=== PATIENT | male | born 1940 | race Caucasian/White ===

== ENCOUNTER 2022-10-30 21:00 | Inpatient (IN) | payer MEDICARE, MEDICAID, SELFPAY ==
[2022-10-30 21:01] VITALS: BP 145/75; PULSE 91; RESP 18; TEMP 36.6; O2SAT 98; BMI 27.9
--- NOTE | 2022-10-30 21:27 | CT_ITS ---
We are attempting to reach an attending provider to discuss findings. An addendum with communication details will be sent when the communication is complete. STUDY: CT BRAIN WITHOUT CONTRAST REASON FOR EXAM: Male, 82 years old. Trauma RADIATION DOSAGE (If Supplied By Facility): CTDIvol = ( 44.99 ) mGy, DLP = ( 812.98 ) mGycm TECHNIQUE: Transaxial CT imaging of the brain was performed without administration of intravenous contrast material. Individualized dose optimization techniques were used for this CT. COMPARISON: No relevant priors. FINDINGS: Normal soft tissue structures. Normal calvarium. There is mild cerebral atrophy with widening of the extra-axial spaces and ventricular dilatation. There are areas of decreased attenuation within the white matter tracts of the supratentorial brain, consistent with microvascular disease changes. Normal basal ganglia and thalami. Normal brainstem. There is mild cerebellar atrophy. There is a visualized well-circumscribed hyperdense mass with possible midline punctate calcification in the midline bordering the falx measuring 1.2 x 1.7 x 0.9 cm. Given its location and appearance this likely represents a mass related than hemorrhage. This may represent a small meningioma. There are no findings of an acute ischemic infarction. Normal visualized paranasal sinuses. CT/Brain/Head without Contrast IMPRESSION: Findings are suggestive of a incidental extra-axial mass bordering the anterior midline falx measuring 1.2 x 1.7 x 0.96 cm. As likely represents a meningioma rather than hemorrhage however recommend consideration for follow-up CT scan with contrast and/or preferred for soft tissue MRI, if the patient can tolerate the procedure. There is no visualized mass effect. There is no visualized edema. Electronically Signed: Deisy Yu MD at 22:21 EST ,
--- NOTE | 2022-10-30 21:27 | CT_ITS ---
STUDY: CT CERVICAL SPINE WITHOUT CONTRAST REASON FOR EXAM: Male, 82 years old. Trauma RADIATION DOSAGE (If Supplied By Facility): CTDIvol = ( 23.26 ) mGy, DLP = ( 515.51 ) mGycm TECHNIQUE: High resolution transaxial imaging was performed without contrast material. Sagittal and coronal images were reconstructed. Individualized dose optimization techniques were used for this CT. COMPARISON: None FINDINGS: Normal craniovertebral junction. There are degenerative changes of the anterior atlantoaxial articulation. Normal odontoid process. Normal cervical lordosis. Normal vertebral bodies and posterior osseous elements. C2-3: There is disc space narrowing facet arthropathy with mild neural foramina narrowing no significant central stenosis. C3-4: There is disc space narrowing minimal spondylosis, facet arthropathy with mild neural foramina narrowing no significant central stenosis. C4-5: There is disc space narrowing spondylosis facet arthropathy moderate neural foramina narrowing, minimal central stenosis. C5-6: There is slight anterolisthesis. There is severe disc space narrowing. There is minimal neural foramina narrowing, no significant central stenosis. C6-7: There is disc space narrowing spondylosis and mild neural foramina narrowing no significant central stenosis. C7-T1: There is disc space narrowing no significant neural foramina narrowing or central stenosis. There is partial calcification of the right carotid bulb. CT/Spine Cervical without Contras IMPRESSION: Degenerative change of the cervical spine without visualized acute fracture. Electronically Signed: Deisy Yu MD at 22:24 EST Reading Location ID and State: [facility] / ID Tel , Service support ,
--- NOTE | 2022-10-30 21:31 | EDS_ITS ---
HPI <Dr. Daniel Oseguera MD - Last Filed: 11/02/22 15:05> HPI - Fall History of Present Illness Chief Complaint: Fall Informant: patient Narrative Narrative: Patient presents for falls at home. Patient states that he has a long history of falls. 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 He states he has always had clumsy feet. He states on Saturday he was putting his jeans on. When he got his left foot starting to go into the jeans he got stuck. His right leg was already there. This prevented him from pulling his feet apart and he leaned forward and fell. He did hit his head but never lost consciousness. Nothing else got hurt. Tonight he was on the toilet. He was trying to maneuver and he got his toe caught on the rug that wraps around the base of the toilet. He states either his toe caught or possibly the rug even slipped causing him to fall forward. He was in a small space and had trouble getting up. Again he hit his head but does not think he got knocked out. He states he does have a little bit of a headache. He has a little soreness of his left knee. But nothing else really hurts. He has no numbness tingling weakness. He is on glimepiride metformin and insulin but no anticoagulation. He has not been ill recently. He does live at home with his . He states his called EMS. [facility] <Dr. Daniel Oseguera MD - Last Filed: 11/02/22 15:05> [facility] Medical History (Updated 11/02/22 @ 15:[address] Daniel Oseguera MD) Diabetes type 2, controlled Frequent falls Hypertension Sleep apnea Home Medications glimepiride 4 mg tablet 4 mg PO BID Check with primary doctor 10/30/22 [History Last Taken Unknown] metformin 1,000 mg tablet 1,000 mg PO BID Check with primary doctor 10/30/22 [History Last Taken Unknown] multivitamin 1 tab PO DAILY Check with primary doctor 10/30/22 [History Last Taken Unknown] insulin detemir U-100 100 unit/mL (3 mL) subcutaneous pen (Levemir FlexTouch U- 100 Insulin) 25 unit subcut DAILY Check with primary doctor 10/31/22 [History Last Taken Unknown] Allergy/AdvReac Type Severity Reaction Status Date / Time No Known Allergies Allergy Verified 10/30/22 21:10 Family History (Updated 10/31/22 @ 11:[address] Sky Callahan MD) Mother No problems noted. Father No problems noted. Social History Smoking Status: Former smoker ROS <Dr. Daniel Oseguera MD - Last Filed: 11/02/22 15:05> ROS ED Constitutional Constitutional ED: Denies chills or fever(s) Eyes Eyes: Denies change in vision ENT ENT ED: Denies rhinorrhea or sore throat Cardiovascular Cardiovascular: Denies chest pain, palpitations or racing heartbeat Respiratory/Chest Respiratory/Chest: Denies cough or dyspnea Gastrointestinal Gastrointestinal: Denies abdominal pain, diarrhea, nausea or vomiting Genitourinary Genitourinary ED: Denies dysuria Musculoskeletal Musculoskeletal: Reports arthralgias; Denies back pain or neck pain Integumentary Reports Abrasions and other Details: Slight abrasion/contusion to anterior left knee. Neurologic Neurologic: Reports headache(s); Denies paresthesias or weakness Endocrine Endocrinology: Reports other Details: Patient states he has been taking his diabetic meds as prescribed. He has had diabetes for approximately 30 years. ; Denies polydipsia or polyuria Hematologic/Lymphatic Hematologic/Lymphatic: Denies easy bleeding or easy bruising Allergic/Immunologic Allergic/Immunologic ED: Denies urticaria EXAM <Dr. Daniel Oseguera MD - Last Filed: 11/02/22 15:05> Physical Exam Narrative Exam Narrative: Patient is wide-awake alert and appropriate. He says hello since I walk in the room. He is actually a very good informant for history. He can tell me the dates of his prior surgeries. He tells me where he is worked before. He knows his medications and dosages. No sign of confusion at all. HEENT: There is some erythema on the upper forehead from midline to a little on the left. But no laceration. No step-off. No facial tenderness. No epistaxis. No septal hematoma. No intraoral injury. Eyes: No subconjunctival hemorrhage Neck shows no tenderness or pain with motion. Lungs are clear bilaterally. No pain with deep breath. No pain with AP or lateral compression. Heart is regular I hear no murmur gallop or rub. Abdomen is soft nontender. No bruit. No mass. Distal pulses are normal lower extremities. No CVA or suprapubic tenderness. Extremities show slight contusion to the anterior knee over the patella on the left. But his extensor mechanism is intact. It is really not tender. Range of motion is good. There is no effusion. He does have a small tear of the skin on the undersurface of the left great toe. No active bleeding. This is about 1 cm and shallow and does not need suturing. Patient also complains of soreness at his shoulders but I see no he or bruising or abrasions. There is no deformity. I will get these seen on chest x-ray. Const Vital Signs: 10/30/22 21:01 10/30/22 21:01 10/31/22 05:00 Temperature 97.8 F Temperature Source Oral Pulse Rate 91 66 Respiratory Rate 18 17 Respiratory Effort Normal Respiratory Depth Normal Respiratory Pattern Normal Blood Pressure 145/75 H 140/74 H Blood Pressure Mean 98 96 Pulse Ox 98 94 Oxygen Delivery Method Room Air Room Air 10/31/22 06:00 10/31/22 09:04 Temperature Temperature Source Pulse Rate 70 73 Respiratory Rate 18 16 Respiratory Effort Respiratory Depth Respiratory Pattern Blood Pressure 144/66 H 142/82 H Blood Pressure Mean 92 Pulse Ox 93 95 Oxygen Delivery Method <Dr. Sanket Rodriguez DO - Last Filed: 10/31/22 08:55> Physical Exam Const Vital Signs: 10/30/22 21:01 10/30/22 21:01 10/31/22 05:00 Temperature 97.8 F Temperature Source Oral Pulse Rate 91 66 Respiratory Rate 18 17 Respiratory Effort Normal Respiratory Depth Normal Respiratory Pattern Normal Blood Pressure 145/75 H 140/74 H Blood Pressure Mean 98 96 Pulse Ox 98 94 Oxygen Delivery Method Room Air Room Air 10/31/22 06:00 10/31/22 09:04 Temperature Temperature Source Pulse Rate 70 73 Respiratory Rate 18 16 Respiratory Effort Respiratory Depth Respiratory Pattern Blood Pressure 144/66 H 142/82 H Blood Pressure Mean 92 Pulse Ox 93 95 Oxygen Delivery Method <Dr. Parul Avila MD - Last Filed: 10/31/22 10:44> Physical Exam Const Vital Signs: 10/30/22 21:01 10/30/22 21:01 10/31/22 05:00 Temperature 97.8 F Temperature Source Oral Pulse Rate 91 66 Respiratory Rate 18 17 Respiratory Effort Normal Respiratory Depth Normal Respiratory Pattern Normal Blood Pressure 145/75 H 140/74 H Blood Pressure Mean 98 96 Pulse Ox 98 94 Oxygen Delivery Method Room Air Room Air 10/31/22 06:00 10/31/22 09:04 Temperature Temperature Source Pulse Rate 70 73 Respiratory Rate 18 16 Respiratory Effort Respiratory Depth Respiratory Pattern Blood Pressure 144/66 H 142/82 H Blood Pressure Mean 92 Pulse Ox 93 95 Oxygen Delivery Method [facility] <Dr. Daniel Oseguera MD - Last Filed: 11/02/22 15:05> [facility] Narrative Medical decision making narrative: I discussed this case directly with radiologist, Dr. Yu. She called and stated that the patient's CT does show an extra-axial area that looks more like meningioma and does not look like an acute bleed. She recommended CT with contrast to see if this will enhance as a meningioma normally would. This has been ordered. My independent interpretation of the patient's two-view knee x-ray and his chest x-ray showed chronic changes but no acute process. Shoulder portion seen on the chest x-ray also looked normal other than some arthritic changes. Final reading by radiology shows no acute process. Radiology review of CT shows what they suspect is a meningioma. They recommend either MRI or CT with contrast to see if the meningioma increases signal with contrast. Radiologist did call back. This does still look like a meningioma but they cannot completely rule out chance of a bleed. They are recommending MRI. I went back and talk with the patient. He is not having headache. He states that he gets jerks of his whole body intermittently but he has been getting these for over 10 years. Nothing specifically brings them on. He denies being ill recently. He states he has a history of falling and being clumsy for a long time. He states this even goes back to when he used to work he would fall not uncommonly tripping on items or slipping on the ground. We will discuss with the hospitalist if this patient can OBS'd MRI and further observation. The other option may be to get an MRI in the morning as clinically I have a very low suspicion of bleeding. He is not having any headache. I did review prior outpatient MRI but it was from 2004 and did not show these changes. Lab Data Attestation: I reviewed the patient's lab results. Labs: Laboratory Results - last 24 hr 10/30/22 10/30/22 21:40 21:40 WBC 8.2 RBC 4.63 Hgb 13.6 Hct 40.5 MCV 87.5 MCH 29.4 MCHC 33.6 RDW Std Deviation 40.7 RDW Coeff of Davis 12.7 Plt Count 270 MPV 10.6 Immature Gran % (Auto) 0.500 Neut % (Auto) 63.4 Lymph % (Auto) 21.6 [place] % (Auto) 10.2 H Eos % (Auto) 3.7 Baso % (Auto) 0.6 Absolute Neuts (auto) 5.2 Absolute Lymphs (auto) 1.77 Nucleated RBC % 0 Sodium 140 Potassium 3.6 Chloride 107 Carbon Dioxide 24.0 Anion Gap 9 BUN 24 H Creatinine 1.27 Estim Creat Clear Calc 44.07 Est GFR (MDRD) Af Amer 70 Est GFR (MDRD) Non-Af 58 L BUN/Creatinine Ratio 18.9 Glucose 280 H Calcium 9.1 Radiography Diagnostic Testing: Clinical Impression(s) from Imaging Studies Brain CT 10/30/22 21:27 IMPRESSION: Findings are suggestive of a incidental extra-axial mass bordering the anterior midline falx measuring 1.2 x 1.7 x 0.96 cm. As likely represents a meningioma rather than hemorrhage however recommend consideration for follow-up CT scan with contrast and/or preferred for soft tissue MRI, if the patient can tolerate the procedure. There is no visualized mass effect. There is no visualized edema. Electronically Signed: Deisy Yu MD at 22:21 EST , ADDENDUM: 10/30/229 IMPRESSION: Findings are suggestive of a incidental extra-axial mass bordering the anterior midline falx measuring 1.2 x 1.7 x 0.96 cm. As likely represents a meningioma rather than hemorrhage however recommend consideration for follow-up CT scan with contrast and/or preferred for soft tissue MRI, if the patient can tolerate the procedure. There is no visualized mass effect. There is no visualized edema. N.B. : The above Results were Read Back by Deisy Yu MD to DANIEL OSEGUERA MD, and understanding confirmed on 10/30/2022 22:29:55 (ET). Electronically Signed: Deisy Yu MD at 22:21 EST , Cervical Spine CT 10/30/22 21:27 IMPRESSION: Degenerative change of the cervical spine without visualized acute fracture. Electronically Signed: Deisy Yu MD at 22:24 EST , Chest X-Ray 10/30/22 21:50 IMPRESSION: Minimal left midlung zone atelectasis. No visualized displaced rib fracture. If there is concern for rib fracture recommend dedicated rib series. Electronically Signed: Deisy Yu MD at 22:33 EST , Knee X-Ray 10/30/22 21:50 IMPRESSION: Degenerative change. No visualized acute fracture. Electronically Signed: Deisy Yu MD at 22:34 EST , Brain CT 10/30/22 22:30 IMPRESSION: Diffusely Enhancing mass which the differential includes the possibility of a meningioma which borders both sides of the falx is less common in the typically visualized meningioma.. This raises concern for the possibility neoplasm, potentially metastatic disease in this age group, or potentially vascular lesion/ venous varix. When possible recommend consideration for follow-up MRI with and without gadolinium for clarification of the characteristics of this mass. These findings were called to the on-call physician in the emergency room on a stat basis. N.B. : The above Results were Read Back by Deisy Yu MD to Dr. Sanket Rodriguez MD, and understanding confirmed on 10/31/2022 01:09:53 (ET). Electronically Signed: Deisy Yu MD at 1:11 EST , Brain MRI 10/31/22 03:40 IMPRESSION: 1.6 cm parafalcine mass with enhancement characteristics of a small meningioma. Recommend follow-up to exclude other extra-axial neoplasm. No evidence for acute infarct. Chronic involutional and white matter changes. Electronically Signed: Dorota Cage MD at 8:36 EST , EKG Initial EKG: Comments: My independent interpretation of EKG in a patient who fell at home shows a normal sinus rhythm with overall rate of 83. No acute ST elevation or depression. No ectopy. NC interval is slightly long at 202 ms showing a slight first-degree AV block. However QRS duration and QTc are normal. <Dr. Sanket Rodriguez, DO - Last Filed: 10/31/22 08:55> [facility] Lab Data Labs: Laboratory Results - last 24 hr 10/30/22 10/30/22 21:40 21:40 WBC 8.2 RBC 4.63 Hgb 13.6 Hct 40.5 MCV 87.5 MCH 29.4 MCHC 33.6 RDW Std Deviation 40.7 RDW Coeff of Davis 12.7 Plt Count 270 MPV 10.6 Immature Gran % (Auto) 0.500 Neut % (Auto) 63.4 Lymph % (Auto) 21.6 [place] % (Auto) 10.2 H Eos % (Auto) 3.7 Baso % (Auto) 0.6 Absolute Neuts (auto) 5.2 Absolute Lymphs (auto) 1.77 Nucleated RBC % 0 Sodium 140 Potassium 3.6 Chloride 107 Carbon Dioxide 24.0 Anion Gap 9 BUN 24 H Creatinine 1.27 Estim Creat Clear Calc 44.07 Est GFR (MDRD) Af Amer 70 Est GFR (MDRD) Non-Af 58 L BUN/Creatinine Ratio 18.9 Glucose 280 H Calcium 9.1 Radiography Diagnostic Testing: Clinical Impression(s) from Imaging Studies Brain CT 10/30/22 21:27 IMPRESSION: Findings are suggestive of a incidental extra-axial mass bordering the anterior midline falx measuring 1.2 x 1.7 x 0.96 cm. As likely represents a meningioma rather than hemorrhage however recommend consideration for follow-up CT scan with contrast and/or preferred for soft tissue MRI, if the patient can tolerate the procedure. There is no visualized mass effect. There is no visualized edema. Electronically Signed: Deisy Yu MD at 22:21 EST , ADDENDUM: 10/30/222235 IMPRESSION: Findings are suggestive of a incidental extra-axial mass bordering the anterior midline falx measuring 1.2 x 1.7 x 0.96 cm. As likely represents a meningioma rather than hemorrhage however recommend consideration for follow-up CT scan with contrast and/or preferred for soft tissue MRI, if the patient can tolerate the procedure. There is no visualized mass effect. There is no visualized edema. N.B. : The above Results were Read Back by Deisy Yu MD to DANIEL OSEGUERA MD, and understanding confirmed on 10/30/2022 22:29:55 (ET). Electronically Signed: Deisy Yu MD at 22:21 EST , Cervical Spine CT 10/30/22 21:27 IMPRESSION: Degenerative change of the cervical spine without visualized acute fracture. Electronically Signed: Deisy Yu MD at 22:24 EST , Chest X-Ray 10/30/22 21:50 IMPRESSION: Minimal left midlung zone atelectasis. No visualized displaced rib fracture. If there is concern for rib fracture recommend dedicated rib series. Electronically Signed: Deisy Yu MD at 22:33 EST , Knee X-Ray 10/30/22 21:50 IMPRESSION: Degenerative change. No visualized acute fracture. Electronically Signed: Deisy Yu MD at 22:34 EST , Brain CT 10/30/22 22:30 IMPRESSION: Diffusely Enhancing mass which the differential includes the possibility of a meningioma which borders both sides of the falx is less common in the typically visualized meningioma.. This raises concern for the possibility neoplasm, potentially metastatic disease in this age group, or potentially vascular lesion/ venous varix. When possible recommend consideration for follow-up MRI with and without gadolinium for clarification of the characteristics of this mass. These findings were called to the on-call physician in the emergency room on a stat basis. N.B. : The above Results were Read Back by Deisy Yu MD to Dr. Sanket Rodriguez MD, and understanding confirmed on 10/31/2022 01:09:53 (ET). Electronically Signed: Deisy Yu MD at 1:11 EST , Brain MRI 10/31/22 03:40 IMPRESSION: 1.6 cm parafalcine mass with enhancement characteristics of a small meningioma. Recommend follow-up to exclude other extra-axial neoplasm. No evidence for acute infarct. Chronic involutional and white matter changes. Electronically Signed: Dorota Cage MD at 8:36 EST , Treatment and Re-Evaluation Narrative: The patient was signed out to me while awaiting MRI. The patient's CT and CTA did not completely delineate the mass in his brain and secondary to this he was kept in the ER until an MRI could be ordered/obtained. The MRI showed changes consistent with a meningioma which does correlate with his physical exam. At this time he has no signs of skull fracture or brain bleed his neurologic exam is normal and the MRI shows meningioma which does not need further inpatient work-up. The patient was informed of this he is agreeable to discharge and will follow-up with his family doctor who can refer him to neurosurgery if needed <Dr. Parul Avila MD - Last Filed: 10/31/22 10:44> [facility] Lab Data Labs: Laboratory Results - last 24 hr 10/30/22 10/30/22 21:40 21:40 WBC 8.2 RBC 4.63 Hgb 13.6 Hct 40.5 MCV 87.5 MCH 29.4 MCHC 33.6 RDW Std Deviation 40.7 RDW Coeff of Davis 12.7 Plt Count 270 MPV 10.6 Immature Gran % (Auto) 0.500 Neut % (Auto) 63.4 Lymph % (Auto) 21.6 [place] % (Auto) 10.2 H Eos % (Auto) 3.7 Baso % (Auto) 0.6 Absolute Neuts (auto) 5.2 Absolute Lymphs (auto) 1.77 Nucleated RBC % 0 Sodium 140 Potassium 3.6 Chloride 107 Carbon Dioxide 24.0 Anion Gap 9 BUN 24 H Creatinine 1.27 Estim Creat Clear Calc 44.07 Est GFR (MDRD) Af Amer 70 Est GFR (MDRD) Non-Af 58 L BUN/Creatinine Ratio 18.9 Glucose 280 H Calcium 9.1 Radiography Diagnostic Testing: Clinical Impression(s) from Imaging Studies Brain CT 10/30/22 21:27 IMPRESSION: Findings are suggestive of a incidental extra-axial mass bordering the anterior midline falx measuring 1.2 x 1.7 x 0.96 cm. As likely represents a meningioma rather than hemorrhage however recommend consideration for follow-up CT scan with contrast and/or preferred for soft tissue MRI, if the patient can tolerate the procedure. There is no visualized mass effect. There is no visualized edema. Electronically Signed: Deisy Yu MD at 22:21 EST , ADDENDUM: 10/30/226 IMPRESSION: Findings are suggestive of a incidental extra-axial mass bordering the anterior midline falx measuring 1.2 x 1.7 x 0.96 cm. As likely represents a meningioma rather than hemorrhage however recommend consideration for follow-up CT scan with contrast and/or preferred for soft tissue MRI, if the patient can tolerate the procedure. There is no visualized mass effect. There is no visualized edema. N.B. : The above Results were Read Back by Deisy Yu MD to DANIEL OSEGUERA MD, and understanding confirmed on 10/30/2022 22:29:55 (ET). Electronically Signed: Deisy Yu MD at 22:21 EST Reading Location ID and State: [facility] / [place] Tel , Service support , Cervical Spine CT 10/30/22 21:27 IMPRESSION: Degenerative change of the cervical spine without visualized acute fracture. Electronically Signed: Deisy Yu MD at 22:24 EST , Chest X-Ray 10/30/22 21:50 IMPRESSION: Minimal left midlung zone atelectasis. No visualized displaced rib fracture. If there is concern for rib fracture recommend dedicated rib series. Electronically Signed: Deisy Yu MD at 22:33 EST , Knee X-Ray 10/30/22 21:50 IMPRESSION: Degenerative change. No visualized acute fracture. Electronically Signed: Deisy Yu MD at 22:34 EST , Brain CT 10/30/22 22:30 IMPRESSION: Diffusely Enhancing mass which the differential includes the possibility of a meningioma which borders both sides of the falx is less common in the typically visualized meningioma.. This raises concern for the possibility neoplasm, potentially metastatic disease in this age group, or potentially vascular lesion/ venous varix. When possible recommend consideration for follow-up MRI with and without gadolinium for clarification of the characteristics of this mass. These findings were called to the on-call physician in the emergency room on a stat basis. N.B. : The above Results were Read Back by Deisy Yu MD to Dr. Sanket Rodriguez MD, and understanding confirmed on 10/31/2022 01:09:53 (ET). Electronically Signed: Deisy Yu MD at 1:11 EST , Brain MRI 10/31/22 03:40 IMPRESSION: 1.6 cm parafalcine mass with enhancement characteristics of a small meningioma. Recommend follow-up to exclude other extra-axial neoplasm. No evidence for acute infarct. Chronic involutional and white matter changes. Electronically Signed: Dorota Cage MD at 8:36 EST , Treatment and Re-Evaluation Narrative: The patient was signed out to me while awaiting MRI. The patient's CT and CTA did not completely delineate the mass in his brain and secondary to this he was kept in the ER until an MRI could be ordered/obtained. The MRI showed changes consistent with a meningioma which does correlate with his physical exam. At this time he has no signs of skull fracture or brain bleed his neurologic exam is normal and the MRI shows meningioma which does not need further inpatient work-up. The patient was informed of this he is agreeable to discharge and will follow-up with his family doctor who can refer him to neurosurgery if needed Addendum: Patient signed out to me this morning with plan to be discharged to home. He had presented last evening after a fall. CT scan revealed a brain mass, possible meningioma. MRI this morning confirmed small meningioma and plan was to discharge the patient to home. Transport was called, however they arrived patient stated that he did not feel he will go home because he could not walk. Nursing staff got him up at bedside. They state that he was very shaky and not able to ambulate. Patient has had a history of frequent falls. Patient voices understanding that he will likely need to go to a fdc for therapy. I will speak with the hospitalist. Discharge Plan Triage Chief Complaint: Fall ED Provider: Daniel Oseguera Dx/Rx/DC Orders Clinical Impression: Fall at home, Intracranial mass, Meningioma, Inability to ambulate due to multiple joints Primary Care Provider: Laverne Jackson Disposition Disposition: Home, Self Care
--- NOTE | 2022-10-30 21:50 | RAD_ITS ---
STUDY: X-RAY CHEST REASON FOR EXAM: Male, 82 years old. Trauma TECHNIQUE: Single AP portable view of the chest. COMPARISON: None. FINDINGS: The lungs are hypoinflated. Interstitial markings are prominent in the left perihilar region. There is no demonstrated pleural abnormality. There is mild cardiac enlargement. Normal mediastinum and leighann. Normal visualized pulmonary arteries. Normal visualized aortic arch and descending thoracic aorta. There are diffuse degenerative changes of the visualized thoracic spine. There is degenerative osteoarthritis of the bilateral shoulders. There is no demonstrated abnormality of the visualized soft tissue structures of the upper abdomen. RAD/Chest 1 View (Portable) IMPRESSION: Minimal left midlung zone atelectasis. No visualized displaced rib fracture. If there is concern for rib fracture recommend dedicated rib series. Electronically Signed: Deisy Yu MD at 22:33 EST Reading Location ID and State: [facility], later [facility] / [place] Tel , Service support ,
--- NOTE | 2022-10-30 21:50 | RAD_ITS ---
STUDY: X-RAY - LEFT KNEE REASON FOR EXAM: Male, 82 years old. Trauma TECHNIQUE: 2 view(s) of the knee. COMPARISON: None. FINDINGS: There is demineralization of the visualized distal femur. There is demineralization of the tibia and fibula. Normal proximal tibiofibular articulation. There is moderate degenerative arthrosis of the medial femorotibial compartment with moderate joint space narrowing. There is moderate degenerative arthrosis of the lateral femorotibial compartment with moderate joint space narrowing. There is severe degenerative arthrosis of the patellofemoral articulation. There is mild soft tissue edema. There may be a trace joint effusion. RAD/Knee 1 or 2 Views IMPRESSION: Degenerative change. No visualized acute fracture. Electronically Signed: Deisy Yu MD at 22:34 EST Reading Location ID and State: Formerly [facility] / [place] Tel , Service support ,
[2022-10-30 21:55] LABS: Absolute Lymphocyte Count 1.77 X10^3/uL (0.83-4.51); Absolute Neutrophil Count 5.2 X10^3/uL (2.0-7.7); Basophil# 0.05 X10^3/uL; Basophil% 0.6 % (0-1); Eosinophils% 3.7 % (0-5); Hematocrit 40.5 % (40-54); Hemoglobin 13.6 g/dL (13.0-16.5); Lymphocyte # 1.77 X10^3/ul (0.83-4.51); Lymphocyte % 21.6 % (19-41); Mean Corp Hgb Conc 33.6 g/dL (32-36); Mean Corpuscular Hgb 29.4 pg (27.0-32.0); Mean Corpuscular Volume 87.5 fL (80-94); Mean Platelet Vol. 10.6 fl (6.2-12.0); Monocyte# 0.84 X10^3/uL; Monocyte% 10.2 % (0-10); NRBC Flagged by Analyzer 0 % (0-5); Neutrophil # 5.21 X10^3/uL (2.7-7.7); Neutrophil % 63.4 % (47-70); Platelet Count 270 K/mm3 (150-450); RBC Distribution Width CV 12.7 % (11.6-14.6); RBC Distribution Width SD 40.7 fl (35.1-43.9); Red Blood Count 4.63 M/mm3 (4.6-6.2); White Blood Count 8.2 K/mm3 (4.4-11.0)
[2022-10-30 22:04] LABS: Anion Gap 9 (5-15); BUN 24 mg/dL (7-18); BUN/Creat Ratio 18.9 RATIO (10-20); Calcium,Total 9.1 mg/dL (8.5-10.1); Chloride 107 mmol/L (98-107); Creatinine, Serum 1.27 mg/dL (0.70-1.30); EST Glomerular Filtration Rate 58 mL/min (>60); Est Glom Filt Rate - Afr Amer 70 mL/min (>60); Estimated Creatinine Clearance 44.07 ml/min; Glucose 280 mg/dL (74-106); Potassium 3.6 mmol/L (3.5-5.1); Sodium Level 140 mmol/L (136-145)
--- NOTE | 2022-10-30 22:30 | CT_ITS ---
STUDY: CT BRAIN WITH CONTRAST REASON FOR EXAM: Male, 82 years old. Trauma RADIATION DOSAGE (If Supplied By Facility): CTDIvol = ( 44.99 ) mGy, DLP = ( 1648.46 ) mGycm TECHNIQUE: Transaxial CT imaging of the brain was performed post contrast administration. The examination was performed with intravenous administration of IV 50mL Isovue-370. Individualized dose optimization techniques were used for this CT. COMPARISON: Noncontrast study October 30, 2022 CT scan FINDINGS: Normal soft tissue structures. Normal calvarium. There is calcification of the bilateral cavernous carotid arteries. There is a midline extra-axial enhancing mass bordering both sides of the falx possible tiny focus of calcification. . There is no visualized adjacent edema. There is no visualized significant mass effect. Normal white matter tracts of the cerebral hemispheres. Normal basal ganglia and thalami. Normal brainstem. Normal cerebellum. There is no intracranial hemorrhage. There are no findings of an acute ischemic infarction. Normal visualized paranasal sinuses. CT/Brain/Head WITH Contrast IMPRESSION: Diffusely Enhancing mass which the differential includes the possibility of a meningioma which borders both sides of the falx is less common in the typically visualized meningioma.. This raises concern for the possibility neoplasm, potentially metastatic disease in this age group, or potentially vascular lesion/ venous varix. When possible recommend consideration for follow-up MRI with and without gadolinium for clarification of the characteristics of this mass. These findings were called to the on-call physician in the emergency room on a stat basis. N.B. : The above Results were Read Back by Deisy Yu MD to Dr. Sanket Rodriguez MD, and understanding confirmed on 10/31/2022 01:09:53 (ET). Electronically Signed: Deisy Yu MD at 1:11 EST Reading Location ID and State: [facility] / [place] Tel , Service support ,
[2022-10-31] VITALS (7 sets, daily range): BP systolic 138–147; BP diastolic 58–82; PULSE 66–84; RESP 16–18; TEMP 36.4–37; O2SAT 93–97; BMI 27.9
--- NOTE | 2022-10-31 03:40 | MRI_ITS ---
HISTORY: Brain mass/meningioma, ABNORMAL CT. TECHNIQUE: Multiplanar and multisequence MR images of the brain were obtained before and after the intravenous administration of 17 cc Clariscan. 341 images. COMPARISON: CT prior day. FINDINGS: BRAIN PARENCHYMA: Mild periventricular white matter changes. No abnormal focus of restricted diffusion. No acute intracranial hemorrhage identified. CSF SPACES: 13 x 16 x 8 mm lobulated and homogeneous isointense parafalcine extra-axial mass with homogeneous enhancement and no significant peritumoral cortical edema. Mild associated thin dural enhancement. Moderate generalized volume loss. No significant midline shift or other mass effect.No extra-axial fluid collection. VASCULAR SYSTEM: Major intracranial flow voids are maintained. PARANASAL SINUSES AND MASTOID AIR CELLS: No significant air fluid levels. ORBITS: Bilateral lens resections. MRI/Brain W/WO Contrast IMPRESSION: 1.6 cm parafalcine mass with enhancement characteristics of a small meningioma. Recommend follow-up to exclude other extra-axial neoplasm. No evidence for acute infarct. Chronic involutional and white matter changes. Electronically Signed: Dorota Cage MD at 8:36 EST ,
--- NOTE | 2022-10-31 11:24 | PCM.HP.STD ---
HPI - General General Date of Admission: 10/31/22 Date of Service: 10/31/22 Chief Complaint: Generalized weakness and fall HPI Narrative KINGSLEY ROGERS, is a 82-year-old male with past medical history significant for diabetes mellitus type 2 who presents with generalized weakness and falls. Per patient has had multiple falls for the past couple of days. His last fall was on the morning of his presentation when he tripped on his carpet. EMS found the patient on the floor once they arrived in in his house. He was sent to the ED. Initial head CT was questionable for bleed however this was ruled out with a negative MRI which demonstrated 1.6 cm parafalcine mass with enhancement characteristics of a small meningioma.? Recommend follow-up to exclude other extra-axial neoplasm. No evidence for acute infarct.? Chronic involutional and white matter changes.. Subsequently admitted to regular nursing floor for further management [facility] Medical History Diabetes type 2, controlled Frequent falls Hypertension Home Medications glimepiride 4 mg tablet 4 mg PO BID 10/30/22 [History Last Taken Unknown] metformin 1,000 mg tablet 1,000 mg PO BID 10/30/22 [History Last Taken Unknown] multivitamin 1 tab PO DAILY 10/30/22 [History Last Taken Unknown] Allergy/AdvReac Type Severity Reaction Status Date / Time No Known Allergies Allergy Verified 10/30/22 21:10 Family History Mother No problems noted. Father No problems noted. Social History Smoking Status: Former smoker ROS ROS Narrative GENERAL: Generalized weakness HEENT: denies headache, sinus congestion, or drainage, dysphagia RESPIRATORY: denies cough, sputum production, shortness of breath, CARDIAC: denies chest pain, palpitations, orthopnea, PND GASTROINTESTINAL: denies abdominal pain, nausea, vomiting, melena, GENITOURINARY: denies dysuria, urgency, frequency, heamaturia EXTREMITY: denies swelling MUSCULOSKELETAL: denies current joint pain or tenderness NEUROLOGIC: denies focal numbness, weakness, tingling HEMATOLOGIC: denies easy bruising and/or hemorrhage INTEGUMENT: denies rashes PSYCHIATRIC: denies suicidal or homicidal ideation Vital Signs Vital Signs Vital Signs: 10/30/22 21:01 10/30/22 21:01 10/31/22 05:00 Temperature 97.8 F Temperature Source Oral Pulse Rate 91 66 Respiratory Rate 18 17 Respiratory Effort Normal Respiratory Depth Normal Respiratory Pattern Normal Blood Pressure 145/75 H 140/74 H Blood Pressure Mean 98 96 Pulse Ox 98 94 Oxygen Delivery Method Room Air Room Air 10/31/22 06:00 10/31/22 09:04 Temperature Temperature Source Pulse Rate 70 73 Respiratory Rate 18 16 Respiratory Effort Respiratory Depth Respiratory Pattern Blood Pressure 144/66 H 142/82 H Blood Pressure Mean 92 Pulse Ox 93 95 Oxygen Delivery Method Weight Weight: 85.9 kg Body Mass Index (BMI) 27.9 Physical Exam Narrative GENERAL: cooperative HEENT: Atraumatic; normocephalic EYES; Anicteric, Normal Conjunctiva NECK; supple, normal thyroid, RESPIRATORY: Diminished to auscultation CARDIOVASCULAR: Regular S1 S2, GI: soft, normoactive bowel sounds, : No Renal angle tenderness; EXTREMITIES: No edema, no clubbing, MUSCULOSKELETAL: no muscle wasting NEURO: Awake; no lateralizing signs. SKIN: No Rash PSYCH; Flat affect Results Lab / Micro Data Result Diagrams: 10/30/22 21:40 10/30/22 21:40 Labs: Laboratory Results - last 24 hr 10/30/22 21:40: WBC 8.2, RBC 4.63, Hgb 13.6, Hct 40.5, MCV 87.5, MCH 29.4, MCHC 33.6, RDW Std Deviation 40.7, RDW Coeff of Daivs 12.7, Plt Count 270, MPV 10.6, Immature Gran % (Auto) 0.500, Neut % (Auto) 63.4, Lymph % (Auto) 21.6, [place] % (Auto) 10.2 H, Eos % (Auto) 3.7, Baso % (Auto) 0.6, Absolute Neuts (auto) 5.2, Absolute Lymphs (auto) 1.77, Nucleated RBC % 0 10/30/22 21:40: Sodium 140, Potassium 3.6, Chloride 107, Carbon Dioxide 24.0, Anion Gap 9, BUN 24 H, Creatinine 1.27, Estim Creat Clear Calc 44.07, Est GFR (MDRD) Af Amer 70, Est GFR (MDRD) Non-Af 58 L, BUN/Creatinine Ratio 18.9, Glucose 280 H, Calcium 9.[address] 10/30/22 21:27 IMPRESSION: Findings are suggestive of a incidental extra-axial mass bordering the anterior midline falx measuring 1.2 x 1.7 x 0.96 cm. As likely represents a meningioma rather than hemorrhage however recommend consideration for follow-up CT scan with contrast and/or preferred for soft tissue MRI, if the patient can tolerate the procedure. There is no visualized mass effect. There is no visualized edema. Electronically Signed: Deisy Yu MD at 22:21 EST , ADDENDUM: 10/30/222235 IMPRESSION: Findings are suggestive of a incidental extra-axial mass bordering the anterior midline falx measuring 1.2 x 1.7 x 0.96 cm. As likely represents a meningioma rather than hemorrhage however recommend consideration for follow-up CT scan with contrast and/or preferred for soft tissue MRI, if the patient can tolerate the procedure. There is no visualized mass effect. There is no visualized edema. N.B. : The above Results were Read Back by Deisy Yu MD to DANIEL OSEGUERA MD, and understanding confirmed on 10/30/2022 22:29:55 (ET). Electronically Signed: Deisy Yu MD at 22:21 EST , Cervical Spine CT 10/30/22 21:27 IMPRESSION: Degenerative change of the cervical spine without visualized acute fracture. Electronically Signed: Deisy Yu MD at 22:24 EST , Chest X-Ray 10/30/22 21:50 IMPRESSION: Minimal left midlung zone atelectasis. No visualized displaced rib fracture. If there is concern for rib fracture recommend dedicated rib series. Electronically Signed: Deisy Yu MD at 22:33 EST , Knee X-Ray 10/30/22 21:50 IMPRESSION: Degenerative change. No visualized acute fracture. Electronically Signed: Deisy Yu MD at 22:34 EST , Brain CT 10/30/22 22:30 IMPRESSION: Diffusely Enhancing mass which the differential includes the possibility of a meningioma which borders both sides of the falx is less common in the typically visualized meningioma.. This raises concern for the possibility neoplasm, potentially metastatic disease in this age group, or potentially vascular lesion/ venous varix. When possible recommend consideration for follow-up MRI with and without gadolinium for clarification of the characteristics of this mass. These findings were called to the on-call physician in the emergency room on a stat basis. N.B. : The above Results were Read Back by Deisy Yu MD to Dr. Sanket Rodriguez MD, and understanding confirmed on 10/31/2022 01:09:53 (ET). Electronically Signed: Deisy Yu MD at 1:11 EST , Brain MRI 10/31/22 03:40 IMPRESSION: 1.6 cm parafalcine mass with enhancement characteristics of a small meningioma. Recommend follow-up to exclude other extra-axial neoplasm. No evidence for acute infarct. Chronic involutional and white matter changes. Electronically Signed: Dorota Cage MD at 8:36 EST , Assessment & Plan Assessment/Plan (1) Fall at home: PLAN: Plan Patient is an 82-year-old gentleman with frequent falls 1. Physical deconditioning - Requested for PT OT eval and healthcare social worker to assist with discharge planning 2. Diabetes mellitus type 2 ? Patient is on metformin and glimepiride held placement long-acting insulin with Accu-Cheks before meals and at bedtime 3. A 1.6 cm parafalcine mass - with enhancement characteristics of a small meningioma.? Plan is to repeat follow-up studies to exclude other extra-axial neoplasm. 4. DVT prophylaxis - On enoxaparin Time spent in the patient's overall evaluation,decision-making process, review of diagnostic data, adjustment of management, discussion with other providers, nursing nursing and ancillary staff involved in patient's care documentation, 55 Minutes Advance planning; did discuss with the patient regarding advanced directives as well as CODE STATUS. Did explain the various scenarios involved ( FULL CODE, DNR CCA, DNR CCA with no intubation, and DNR CC and what each meant) patient elected to was not sure what he wanted at this point. Did explain to patient his CODE STATUS to be maintained as full code until he changes his mind or otherwise. Order was placed. Time spent on discussion 18 minutes. Charges/Coding Visit Charges Inpatient E&M: 24906 Init Hosp L2 Procedures Hospitalists Procedures: 45543 Advncd Care Plan 30 Min
[2022-10-31 12:23] LABS: Absolute Lymphocyte Count 1.65 X10^3/uL (0.83-4.51); Absolute Neutrophil Count 6.9 X10^3/uL (2.0-7.7); Basophil# 0.05 X10^3/uL; Basophil% 0.5 % (0-1); Eosinophil# 0.15 X10^3/uL; Eosinophils% 1.5 % (0-5); Hematocrit 40.8 % (40-54); Hemoglobin 13.2 g/dL (13.0-16.5); Lymphocyte # 1.65 X10^3/ul (0.83-4.51); Lymphocyte % 16.8 % (19-41); Mean Corp Hgb Conc 32.4 g/dL (32-36); Mean Corpuscular Hgb 29.4 pg (27.0-32.0); Mean Corpuscular Volume 90.9 fL (80-94); Mean Platelet Vol. 10.4 fl (6.2-12.0); Monocyte# 1.03 X10^3/uL; Monocyte% 10.5 % (0-10); NRBC Flagged by Analyzer 0 % (0-5); Neutrophil % 70.5 % (47-70); Platelet Count 255 K/mm3 (150-450); RBC Distribution Width SD 42.8 fl (35.1-43.9); Red Blood Count 4.49 M/mm3 (4.6-6.2); White Blood Count 9.8 K/mm3 (4.4-11.0)
[2022-10-31 12:49] LABS: ALB/GLOB Ratio 0.8 RATIO (0.9-2.4); AST(SGOT) 14 U/L (15-37); Alanine Aminotransfer ALT/SGPT 17 U/L (16-61); Albumin, Serum 2.9 g/dL (3.2-5.0); Alkaline Phosphatase 89 U/L (45-117); Anion Gap 5 (5-15); BUN 18 mg/dL (7-18); BUN/Creat Ratio 15.4 RATIO (10-20); Calcium,Total 8.5 mg/dL (8.5-10.1); Chloride 107 mmol/L (98-107); Creatinine, Serum 1.17 mg/dL (0.70-1.30); EST Glomerular Filtration Rate 63 mL/min (>60); Est Glom Filt Rate - Afr Amer 77 mL/min (>60); Estimated Creatinine Clearance 47.84 ml/min; Globulin 3.6 g/dL (2.2-4.2); Glucose 302 mg/dL (74-106); Magnesium 2.1 mg/dL (1.6-2.6); Protein, Total 6.5 g/dL (6.4-8.2); Sodium Level 139 mmol/L (136-145); Thyroid Stim Hormone (TSH) 0.51 uIU/mL (0.358-3.74)
[2022-10-31] MEDS: Insulin Lispro 100 UNIT/ML INSULN.PEN SC ×2 (17:58→21:56)
[2022-10-31 18:10] LABS: Bedside Glucose 294 mg/dL (74-106)
[2022-10-31 22:51] LABS: Bedside Glucose 151 mg/dL (74-106)
[2022-11-01 04:00] VITALS: BP 145/64; PULSE 75; RESP 18; TEMP 36.9; O2SAT 96
[2022-11-01] MEDS: Acetaminophen 325 MG Tablet 650 MG PO (04:16)
[2022-11-01 05:56] LABS: Absolute Neutrophil Count 7.4 X10^3/uL (2.0-7.7); Basophil# 0.05 X10^3/uL; Basophil% 0.5 % (0-1); Eosinophil# 0.37 X10^3/uL; Eosinophils% 3.4 % (0-5); Hematocrit 40.1 % (40-54); Hemoglobin 13.3 g/dL (13.0-16.5); Lymphocyte % 18.1 % (19-41); Mean Corp Hgb Conc 33.2 g/dL (32-36); Mean Corpuscular Volume 90.3 fL (80-94); Mean Platelet Vol. 10.2 fl (6.2-12.0); Monocyte# 1.13 X10^3/uL; Monocyte% 10.3 % (0-10); NRBC Flagged by Analyzer 0 % (0-5); Neutrophil # 7.44 X10^3/uL (2.7-7.7); Neutrophil % 67.4 % (47-70); Platelet Count 241 K/mm3 (150-450); RBC Distribution Width CV 13.1 % (11.6-14.6); RBC Distribution Width SD 42.8 fl (35.1-43.9); Red Blood Count 4.44 M/mm3 (4.6-6.2)
[2022-11-01 06:25] LABS: Anion Gap 10 (5-15); BUN 17 mg/dL (7-18); BUN/Creat Ratio 14.7 RATIO (10-20); Calcium,Total 8.6 mg/dL (8.5-10.1); Chloride 105 mmol/L (98-107); Creatinine, Serum 1.16 mg/dL (0.70-1.30); EST Glomerular Filtration Rate 64 mL/min (>60); Est Glom Filt Rate - Afr Amer 77 mL/min (>60); Estimated Creatinine Clearance 48.25 ml/min; Glucose 181 mg/dL (74-106); Potassium 3.8 mmol/L (3.5-5.1); Sodium Level 139 mmol/L (136-145)
[2022-11-01] MEDS: Insulin Glargine-YFGN 100 UNIT/ML Pen 10 UNIT SC (06:32)
[2022-11-01] MEDS: Insulin Lispro 100 UNIT/ML INSULN.PEN SC ×4 (06:33→21:57)
[2022-11-01 06:55] LABS: Bedside Glucose 190 mg/dL (74-106)
--- NOTE | 2022-11-01 08:16 | PCM.PN.HOSP ---
Subjective Subjective Follow-up adult failure to thrive Objective Data Objective Data Vital Signs: Vital Signs Temp Pulse Resp BP Pulse Ox O2 Del Method 98.4 F 75 18 145/64 H 96 Room Air 11/01/22 04:00 11/01/22 04:00 11/01/22 04:00 11/01/22 04:00 11/01/22 04:00 11/01/22 04:00 Oxygen Delivery Method Room Air Weight: 85.9 kg Body Mass Index (BMI) 27.9 Intake & Output: Intake and Output for Last 24 Hours 10/30/22 10/31/22 11/01/22 23:59 23:59 23:59 Output Total 200 / 200 600 / 600 Balance -200 / -200 -600 / -600 Lab / Micro Data Result Diagrams: 11/01/22 05:45 11/01/22 05:45 Labs: Laboratory Results - last 24 hr 10/31/22 12:10: WBC 9.8, RBC 4.49 L, Hgb 13.2, Hct 40.8, MCV 90.9, MCH 29.4, MCHC 32.4, RDW Std Deviation 42.8, RDW Coeff of Davis 13.0, Plt Count 255, MPV 10.4, Immature Gran % (Auto) 0.200, Neut % (Auto) 70.5 H, Lymph % (Auto) 16.8 L, [place] % (Auto) 10.5 H, Eos % (Auto) 1.5, Baso % (Auto) 0.5, Absolute Neuts (auto) 6.9, Absolute Lymphs (auto) 1.65, Nucleated RBC % 0 10/31/22 12:10: Sodium 139, Potassium 4.0, Chloride 107, Carbon Dioxide 27.0, Anion Gap 5, BUN 18, Creatinine 1.17, Estim Creat Clear Calc 47.84, Est GFR (MDRD) Af Amer 77, Est GFR (MDRD) Non-Af 63, BUN/Creatinine Ratio 15.4, Glucose 302 H, Calcium 8.5, Magnesium 2.1, Total Bilirubin 0.60, AST 14 L, ALT 17, Alkaline Phosphatase 89, Total Protein 6.5, Albumin 2.9 L, Globulin 3.6, Albumin/Globulin Ratio 0.8 L, TSH 0.51 10/31/22 17:51: POC Glucose 294 H 10/31/22 21:54: POC Glucose 151 H 11/01/22 05:45: WBC 11.0, RBC 4.44 L, Hgb 13.3, Hct 40.1, MCV 90.3, MCH 30.0, MCHC 33.2, RDW Std Deviation 42.8, RDW Coeff of Davis 13.1, Plt Count 241, MPV 10.2, Immature Gran % (Auto) 0.300, Neut % (Auto) 67.4, Lymph % (Auto) 18.1 L, [place] % (Auto) 10.3 H, Eos % (Auto) 3.4, Baso % (Auto) 0.5, Absolute Neuts (auto) 7.4, Absolute Lymphs (auto) 2.00, Nucleated RBC % 0 11/01/22 05:45: Sodium 139, Potassium 3.8, Chloride 105, Carbon Dioxide 24.0, Anion Gap 10, BUN 17, Creatinine 1.16, Estim Creat Clear Calc 48.25, Est GFR (MDRD) Af Amer 77, Est GFR (MDRD) Non-Af 64, BUN/Creatinine Ratio 14.7, Glucose 181 H, Calcium 8.6, Phosphorus 3.0, Magnesium 2.0 11/01/22 06:31: POC Glucose 190 H Radiography Diagnostic Testing: Radiology Impression Brain MRI 10/31/22 03:40 IMPRESSION: 1.6 cm parafalcine mass with enhancement characteristics of a small meningioma. Recommend follow-up to exclude other extra-axial neoplasm. No evidence for acute infarct. Chronic involutional and white matter changes. Electronically Signed: Dorota Cage MD at 8:36 EST , Physical Exam Narrative GENERAL: cooperative HEENT: Atraumatic; normocephalic EYES; Anicteric, Normal Conjunctiva NECK; supple, normal thyroid, RESPIRATORY: Diminished to auscultation CARDIOVASCULAR: Regular S1 S2, GI: soft, normoactive bowel sounds, : No Renal angle tenderness; EXTREMITIES: No edema, no clubbing, MUSCULOSKELETAL: no muscle wasting NEURO: Awake; no lateralizing signs. SKIN: No Rash PSYCH; Flat affect Assessment & Plan Assessment/Plan (1) Fall at home: PLAN: Plan Patient is an 82-year-old gentleman with frequent falls 1. Physical deconditioning - Requested for PT OT eval and social media community manager to assist with discharge planning 2. Diabetes mellitus type 2 ? Patient is on metformin and glimepiride held placement long-acting insulin with Accu-Cheks before meals and at bedtime 3. A 1.6 cm parafalcine mass - with enhancement characteristics of a small meningioma.? Plan is to repeat follow-up studies to exclude other extra-axial neoplasm. 4. DVT prophylaxis - On enoxaparin Time spent in the patient's overall evaluation,decision-making process, review of diagnostic data, adjustment of management, discussion with other providers, nursing nursing and ancillary staff involved in patient's care documentation, 36 Minutes Charges/Coding Visit Charges Inpatient E&M: 97059 Subs Hosp L2
[2022-11-01 10:00] VITALS: BP 147/65; PULSE 75; RESP 18; TEMP 36.6; O2SAT 96
[2022-11-01 12:10] LABS: Bedside Glucose 245 mg/dL (74-106)
--- NOTE | 2022-11-01 14:30 | CASEMGMT ---
ERICH DOUGHERTY DC Planning Assessment: Face to Face with patient for initial transition planning/care coordination assessment. Pt alert, oriented x4, and agreeable to participating in assessment. ERICH DOUGHERTY introduced self and role at [facility], pt voices understanding. Care providers, pharmacy, and demographics verified. Admitting Dx: CP, Bradycardia PCP: [facility] in [place] Specialists: product sales engineer at [facility], optical instrument assembler at [facility] Preferred Pharmacy: [place], uses [facility] Insurance: [place], [place] MCR Prescription Benefit: Yes thru both [place] and [facility] Living Will/HPOA: None LNOK: brother Mesfin Living Arrangements: Pt lives alone in a mobile home with 3 steps to enter. Pt is independent with all ADLS. Pt's brother lives next door and is support to him when needed. Transportation: Pt's brother drives him to the grocery store. Pt uses [place] transportation to [place] appointments. 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 Plan: Pt plans to return home with the support of his brother, Mesfin. Pt denies any concerns with returning home at this time. Ayanna Joel RN CM
--- NOTE | 2022-11-01 15:42 | CASEMGMT ---
ERICH DOUGHERTY DC Planning Assessment: Face to Face with patient for initial transition planning/care coordination assessment. Pt alert and oriented, answering questions appropriately and agreeable to participating in assessment. ERICH DOUGHERTY introduced self and role at [facility], pt voices understanding. Care providers, pharmacy, and demographics verified. Admitting Dx: Falls, FTT PCP: Laverne Jackson Specialists: Price (ophamologist), Cecily (podiatry) Preferred Pharmacy: [facility] Insurance: [facility] Prescription Benefit: yes Living Will/HPOA: Yes, yes--unable to recall who is listed as HPOA. Encouraged pt to have forms brought in to be scanned as a part of his medical record. Pt expressed understanding. LNOK: Antonette Living Arrangements: Pt lives with his in a 2 story home with a 1st floor set-up. States there is a ramp to the front door. Pt states he has been independent with ADLs but his assists with all household tasks. Pt states he does not shower due to concerns with his balance and falling so he sponge bathes. Transportation: Pt's drives pt to appointments. Pt does not drive DME: shower chair (does not use), walker (without wheels, for longer distances in the home or outside the home), cane (for short distances in the home), has grab bars outside his bathroom to assist with the step down into the bathroom. has a higher rise toilet. SNF: no previous HHC: states he has a CM from [facility] that visits yearly but no regular HHC visits Plan: pt states he would like to return home but states he has been unable to stand without shaking since he has been at [facility]. Discuss possible need for SNF for strengthening prior to return home. Pt states he will consider but feels that once the Nervive medical wears off he will again be able to ambulate and return home. Pt agreeable to receiving a list of SNF to review in case he is unable to ambulate and return home safely. Pt states his first choice would be [facility] ([facility] Pt agreeable to this newspaper writer call his to discuss possible DC plan. Call placed to pt's Antonette who states she would like to have pt return home and that they have the bars by the bathroom to assist him. Explained that pt has not been able to ambulate as of this time but are awaiting PT/OT assessments. Pt's agreeable to SNF if needed and asked about [place] facilities including one by [facility]. Reviewed map and [facility] next to [facility] in [place]. Will provide a full list of SNF including resource and quality data and consistent with pt's insurance network, geographic preference and medical needs. Will continue to follow for PT/OT assessments and facilitate DC plan. Ayanna Joel RN CM
[2022-11-01 15:55] VITALS: BP 143/68; PULSE 76; RESP 16; TEMP 36.7; O2SAT 97
[2022-11-01 17:00] LABS: Bedside Glucose 205 mg/dL (74-106)
[2022-11-01 22:08] VITALS: BP 177/75; PULSE 92; RESP 18; TEMP 37.6; O2SAT 96
[2022-11-01 22:16] LABS: Bedside Glucose 307 mg/dL (74-106)
[2022-11-01] MEDS: 0.9% Saline Lock 10 ML Syringe IV (22:26)
[2022-11-01 22:27] VITALS: BP 177/75; PULSE 92
[2022-11-01] MEDS: hydrALAZINE 20 MG/ML Vial 10 MG IV (22:27)
[2022-11-02 02:36] VITALS: BP 156/70; PULSE 96; RESP 18; TEMP 36.7; O2SAT 96
[2022-11-02] MEDS: Insulin Lispro 100 UNIT/ML INSULN.PEN SC ×4 (06:28→22:10)
[2022-11-02 06:55] LABS: Bedside Glucose 290 mg/dL (74-106)
[2022-11-02 08:08] VITALS: BP 161/73; PULSE 88; RESP 18; TEMP 37.1; O2SAT 96
[2022-11-02] MEDS: Senna/Docusate Sodium 1 Tablet 2 TABLET PO (08:28)
[2022-11-02] MEDS: Acetaminophen 325 MG Tablet 650 MG PO (08:28)
--- NOTE | 2022-11-02 08:47 | PCM.PN.HOSP ---
Subjective Subjective Patient scheduled to be evaluated by PT. Blood glucose control not optimal subsequent adjustment made to patient insulin regimen Objective Data Objective Data Vital Signs: Vital Signs Temp Pulse Resp BP Pulse Ox O2 Del Method 98.8 F 88 18 161/73 H 96 Room Air 11/02/22 08:08 11/02/22 08:08 11/02/22 08:08 11/02/22 08:08 11/02/22 08:08 11/02/22 08:12 Oxygen Delivery Method Room Air Weight: 85.9 kg Body Mass Index (BMI) 27.9 Intake & Output: Intake and Output for Last 24 Hours 10/31/22 11/01/22 11/02/22 23:59 23:59 23:59 Intake Total 580 / 580 320 / 320 Output Total 200 / 200 1400 / 1400 600 / 600 Balance -200 / -200 -820 / -820 -280 / -280 Lab / Micro Data Result Diagrams: 11/01/22 05:45 11/01/22 05:45 Labs: Laboratory Results - last 24 hr 11/01/22 11:48: POC Glucose 245 H 11/01/22 16:40: POC Glucose 205 H 11/01/22 21:55: POC Glucose 307 H 11/02/22 06:27: POC Glucose 290 H Physical Exam Narrative GENERAL: cooperative HEENT: Atraumatic; normocephalic EYES; Anicteric, Normal Conjunctiva NECK; supple, normal thyroid, RESPIRATORY: Diminished to auscultation CARDIOVASCULAR: Regular S1 S2, GI: soft, normoactive bowel sounds, : No Renal angle tenderness; EXTREMITIES: No edema, no clubbing, MUSCULOSKELETAL: no muscle wasting NEURO: Awake; no lateralizing signs. SKIN: No Rash PSYCH; Flat affect Assessment & Plan Assessment/Plan (1) Fall at home: PLAN: Plan Patient is an 82-year-old gentleman with frequent falls 1. Physical deconditioning - Requested for PT OT eval and 7th grade social studies teacher to assist with discharge planning ? 11/02/2022 scheduled to be evaluated by PT 2. Diabetes mellitus type 2 ? Patient is on metformin and glimepiride held placement long-acting insulin with Accu-Cheks before meals and at bedtime ? 11/02/2022 blood glucose control not optimal subsequent adjustment made to the insulin regimen 3. A 1.6 cm parafalcine mass - with enhancement characteristics of a small meningioma.? Plan is to repeat follow-up studies to exclude other extra-axial neoplasm. 4. DVT prophylaxis - On enoxaparin Time spent in the patient's overall evaluation,decision-making process, review of diagnostic data, adjustment of management, discussion with other providers, nursing nursing and ancillary staff involved in patient's care documentation, 36 Minutes Charges/Coding Visit Charges Inpatient E&M: 60552 Subs Hosp L2
[2022-11-02 10:26] VITALS: O2SAT 95
[2022-11-02] MEDS: Insulin Glargine-YFGN 100 UNIT/ML Pen 15 UNIT SC ×2 (10:37→16:23)
--- NOTE | 2022-11-02 11:53 | CASEMGMT ---
Social Work SW reviewed therapy notes and short term SNF is recommended. SW met with pt and introduced self and role of SW. SW reviewed therapy notes with pt. Pt stating that he would like to go home and thinks that even though he did not do well with therapy here, he will be fine at home. SW and pt discussed amount of assist pt can provide and pt concludes that he does not want to ask her to assist him due to her limitations. Pt inquiring if he can go to [facility]. With pt permission phone call to pt to discuss discharge plan. Pt feels pt would benefit from short term rehab and she agrees facility of choice is [facility]. Phone call to [facility] and they do have beds available. SW met with pt who continues to state he wants to return home. SW encouraged pt to call . After pt and spoke on the phone, pt is agreeable to SNF at [facility]. Referral to [facility] who will review referral and let SW know determination of acceptance. Plan: [facility], pending acceptance and [facility]
[2022-11-02 14:08] VITALS: BP 130/65; PULSE 88; RESP 18; TEMP 37.1; O2SAT 97
--- NOTE | 2022-11-02 15:54 | CASEMGMT ---
Social Work [facility] is able to accept pt. Precert started at this time. [facility] provided phone number of nursing unit and to call if precert is obtained over the weekend. Pt updated and agreeable to discharge plan. Plan: [facility], pending precert [facility]
[2022-11-02 16:10] LABS: Bedside Glucose 409 mg/dL (74-106)
[2022-11-02 16:10] LABS: Bedside Glucose 416 mg/dL (74-106)
[2022-11-02 19:46] LABS: Bedside Glucose 237 mg/dL (74-106)
[2022-11-02 22:09] VITALS: BP 143/87; PULSE 82; RESP 17; TEMP 37.1; O2SAT 100
[2022-11-02 23:01] LABS: Bedside Glucose 194 mg/dL (74-106)
[2022-11-03 04:00] VITALS: BP 152/86; PULSE 85; RESP 18; TEMP 36.4; O2SAT 95
[2022-11-03 07:24] VITALS: O2SAT 95
[2022-11-03] MEDS: Insulin Lispro 100 UNIT/ML INSULN.PEN SC ×2 (07:34→11:07)
[2022-11-03] MEDS: Insulin Glargine-YFGN 100 UNIT/ML Pen 15 UNIT SC (07:34)
--- NOTE | 2022-11-03 07:40 | PCM.PN.HOSP ---
Subjective Subjective Patient seen has tolerated PT well so far. Patient awaiting to be transferred to a detention facility pending Objective Data Objective Data Vital Signs: Vital Signs Temp Pulse Resp BP Pulse Ox O2 Del Method 97.6 F L 85 18 152/86 H 95 Room Air 11/03/22 04:00 11/03/22 04:00 11/03/22 04:00 11/03/22 04:00 11/03/22 07:24 11/03/22 07:24 Oxygen Delivery Method Room Air Weight: 85.9 kg Body Mass Index (BMI) 27.9 Intake & Output: Intake and Output for Last 24 Hours 11/01/22 11/02/22 11/03/22 23:59 23:59 23:59 Intake Total 580 / 580 320 / 620 700 / 700 Output Total 1400 / 1400 600 / 1000 1200 / 1200 Balance -820 / -820 -280 / -380 -500 / -500 Lab / Micro Data Result Diagrams: 11/01/22 05:45 11/01/22 05:45 Labs: Laboratory Results - last 24 hr 11/02/22 11:13: POC Glucose 416 H 11/02/22 11:14: POC Glucose 409 H 11/02/22 16:19: POC Glucose 237 H 11/02/22 22:08: POC Glucose 194 H Physical Exam Narrative GENERAL: cooperative HEENT: Atraumatic; normocephalic EYES; Anicteric, Normal Conjunctiva NECK; supple, normal thyroid, RESPIRATORY: Diminished to auscultation CARDIOVASCULAR: Regular S1 S2, GI: soft, normoactive bowel sounds, : No Renal angle tenderness; EXTREMITIES: No edema, no clubbing, MUSCULOSKELETAL: no muscle wasting NEURO: Awake; no lateralizing signs. SKIN: No Rash PSYCH; Flat affect Assessment & Plan Assessment/Plan (1) Fall at home: PLAN: Plan Patient is an 82-year-old gentleman with frequent falls 1. Physical deconditioning - Requested for PT OT eval and nursing home social worker to assist with discharge planning ? 11/02/2022 scheduled to be evaluated by PT ? 11/03/2022. Patient has apparently been accepted at [facility], currently awaiting insurance pre-CERT prior to transfer 2. Diabetes mellitus type 2 ? Patient is on metformin and glimepiride held placement long-acting insulin with Accu-Cheks before meals and at bedtime ? 11/02/2022 blood glucose control not optimal subsequent adjustment made to the insulin regimen 3. A 1.6 cm parafalcine mass - with enhancement characteristics of a small meningioma.? Plan is to repeat follow-up studies to exclude other extra-axial neoplasm. 4. DVT prophylaxis - On enoxaparin Time spent in the patient's overall evaluation,decision-making process, review of diagnostic data, adjustment of management, discussion with other providers, nursing nursing and ancillary staff involved in patient's care documentation, 36 Minutes Charges/Coding Visit Charges Inpatient E&M: 11064 Subs Hosp L2
--- NOTE | 2022-11-03 07:48 | NURSING ---
[facility] called and stated that they have received authorization for patient, good through saturday11/05/2022. aware.
[2022-11-03 08:04] VITALS: BP 150/94; PULSE 82; RESP 17; TEMP 37; O2SAT 98
[2022-11-03 08:06] LABS: Bedside Glucose 158 mg/dL (74-106)
--- NOTE | 2022-11-03 08:30 | PCM.TXEXTCAR ---
Diet Diet Order/Speech Therapy: 10/31/22 12:22 Diet: Consistent Carb - Calorie Controlled Food consistency:: Regular Liquid Consistency:: Regular/Thin How many daily calories?: 1800 calorie Wound(s) LT KNEE: Wound Type: Abrasion Therapies Physical Therapy: Eval and Treat Occupational Therapy: Eval and Treat Problem/Diagnosis (1) Fall at home: Status: Acute Code(s): W19.XXXA - Unspecified fall, initial encounter; Y92.009 - Unspecified place in unspecified non-institutional (private) residence as the place of occurrence of the external cause Plan Patient is an 82-year-old gentleman with frequent falls 1. Physical deconditioning - Requested for PT OT eval and social group worker to assist with discharge planning ? 11/02/2022 scheduled to be evaluated by PT ? 11/03/2022. Patient has apparently been accepted at [facility], currently awaiting insurance pre-CERT prior to transfer 2. Diabetes mellitus type 2 ? Patient is on metformin and glimepiride held placement long-acting insulin with Accu-Cheks before meals and at bedtime ? 11/02/2022 blood glucose control not optimal subsequent adjustment made to the insulin regimen 3. A 1.6 cm parafalcine mass - with enhancement characteristics of a small meningioma.? Plan is to repeat follow-up studies to exclude other extra-axial neoplasm. 4. DVT prophylaxis - On enoxaparin Time spent in the patient's overall evaluation,decision-making process, review of diagnostic data, adjustment of management, discussion with other providers, nursing nursing and ancillary staff involved in patient's care documentation, 36 Minutes Allergies/Procedures Done in Hospital Allergies No Known Allergies Allergy (Verified 10/30/22 21:10) Type of Care/Length of Stay Estimated LOS: Convalescent Care Less Than 30 days Type of Care Needed: Skilled Rehab Potential: Good Prognosis: Good Additional Orders/Day of Discharge Day of Discharge: 11/03/22 Dietary and Speech Recommendations Dietitian Recommendations/Changes: Continue 1800CCD diet to manage blood sugars Discharge Plan Admission Admit Date/Time: 10/31/22 10:50 Attending Provider: Sky Callahan Primary Care Provider: Laverne Jackson Instructions Patient Instructions: Brain Tumors Additional Instructions / Restrictions: Your MRI shows a meningioma which is technically a brain tumor but this is usually benign and does not need any type of further work-up. Please follow-up with your family doctor to discuss need for possible neurology/neurosurgery referral for further evaluation if this if you desire and return to the ER should you have any further concerns Discharge Orders/Prescriptions Prescriptions: New acetaminophen [Tylenol] 325 mg Tablet 650 mg PO Q6H PRN PRN (Reason: Pain 1-10 Or Fever>100.7) Qty: 0 0RF insulin glargine-yfgn 100 unit/mL (3 mL) Insulin Pen 15 unit subcut BIDAC Qty: 0 0RF sennosides-docusate sodium [Stool Softener-Stimulant Laxat] 8.6-50 mg Tablet 2 tab PO BID PRN PRN (Reason: Constipation) Qty: 0 0RF insulin lispro [Humalog KwikPen Insulin] 100 unit/mL Insulin Pen See Protocol subcut ACHS Qty: 0 0RF Protocol: 4. Sliding Scale Insulin High-Med Dosing Condition: 150-199 mg/dl = 2 units Condition: 200-259 mg/dl = 4 units Condition: 260-324 mg/dl = 6 units Condition: 325-374 mg/dl = 8 units Condition: 375-409 mg/dl = 10 units Condition: 410-449 mg/dl = 11 units Condition: Greater than 449 call physician Protocol Text: - Use for Total Daily Dose of Insulin 56-80 units - Patient who are insulin resistant or septic HIGH MEDIUM DOSING ALGORITHM Continued metformin 1,000 mg tablet 1,000 mg PO BID multivitamin Tablet 1 tab PO DAILY Label Comments: 1 tablet by mouth as directed Discontinued glimepiride 4 mg tablet 4 mg PO BID Levemir FlexTouch U-100 Insuln 100 unit/mL (3 mL) insulin pen 25 unit SUBCUT DAILY Referrals / Follow Up: Laverne Jackson PA [Primary Care Provider] - Disposition Disposition (needs filled in before D/C Order can be placed): Care Home Facility
--- NOTE | 2022-11-03 08:33 | PCM.DC.SUM ---
Providers Date of Admission: 10/31/22 Date of Discharge: 11/03/22 Primary Care Physician: AMILCAR Ward Reason For Visit: ADULT FAILURE TO THRIVE Diagnosis Discharge Diagnosis (1) Fall at home: Status: Acute Code(s): W19.XXXA - Unspecified fall, initial encounter; Y92.009 - Unspecified place in unspecified non-institutional (private) residence as the place of occurrence of the external cause Plan Patient is an 82-year-old gentleman with frequent falls 1. Physical deconditioning - Requested for PT OT eval and social sciences lecturer to assist with discharge planning ? 11/02/2022 scheduled to be evaluated by PT ? 11/03/2022. Patient has apparently been accepted at [facility], currently awaiting insurance pre-CERT prior to transfer 2. Diabetes mellitus type 2 ? Patient is on metformin and glimepiride held placement long-acting insulin with Accu-Cheks before meals and at bedtime ? 11/02/2022 blood glucose control not optimal subsequent adjustment made to the insulin regimen 3. A 1.6 cm parafalcine mass - with enhancement characteristics of a small meningioma.? Plan is to repeat follow-up studies to exclude other extra-axial neoplasm. 4. DVT prophylaxis - On enoxaparin Time spent in the patient's overall evaluation,decision-making process, review of diagnostic data, adjustment of management, discussion with other providers, nursing nursing and ancillary staff involved in patient's care documentation, 36 Minutes Medications at Discharge Home Medications metformin 1,000 mg tablet 1,000 mg PO BID Check with primary doctor 10/30/22 multivitamin 1 tab PO DAILY Check with primary doctor 10/30/22 acetaminophen 325 mg tablet (Tylenol) 650 mg PO Q6H PRN PRN Pain 1-10 Or Fever>100.7 #0 tabs 11/03/22 insulin glargine-yfgn 100 unit/mL (3 mL) subcutaneous pen 15 unit (0.15 mL) subcut BIDAC #0 mL 11/03/22 insulin lispro 100 unit/mL subcutaneous pen (Humalog KwikPen (U-100) Insulin) See Protocol subcut ACHS #0 mL 11/03/22 sennosides 8.6 mg-docusate sodium 50 mg tablet (Stool Softener-Stimulant Laxative) 2 tab PO BID PRN PRN Constipation #0 tabs 11/03/22 Hospital Course Summary of Care Provided Minutes Spent on Discharge: 36 Physical Exam Narrative GENERAL: cooperative HEENT: Atraumatic; normocephalic EYES; Anicteric, Normal Conjunctiva NECK; supple, normal thyroid, RESPIRATORY: Diminished to auscultation CARDIOVASCULAR: Regular S1 S2, GI: soft, normoactive bowel sounds, : No Renal angle tenderness; EXTREMITIES: No edema, no clubbing, MUSCULOSKELETAL: no muscle wasting NEURO: Awake; no lateralizing signs. SKIN: No Rash PSYCH; Flat affect Weight / BMI Weight Weight: 85.9 kg Body Mass Index (BMI) 27.9 ABG / Lab / Microbiology Data Result Diagrams: 11/01/22 05:45 11/01/22 05:45 Laboratory: Laboratory Results - last 24 hr 11/02/22 11:13: POC Glucose 416 H 11/02/22 11:14: POC Glucose 409 H 11/02/22 16:19: POC Glucose 237 H 11/02/22 22:08: POC Glucose 194 H 11/03/22 07:31: POC Glucose 158 H D/C Instructions Discharge Diet: 1800 Calorie Control Diet Discharge Activity: Return to Normal Activity Call your doctor if you observe: Fever of 101 or Higher, Shortness of breath, Fainting spells and Chest pain Meaningful Use Info Meaningful Use Diagnoses (Choose all that apply): None applicable Discharge Plan Admission Admit Date/Time: 10/31/22 10:50 Attending Provider: Sky Callahan Primary Care Provider: Laverne Jackson Instructions Patient Instructions: Brain Tumors Additional Instructions / Restrictions: Your MRI shows a meningioma which is technically a brain tumor but this is usually benign and does not need any type of further work-up. Please follow-up with your family doctor to discuss need for possible neurology/neurosurgery referral for further evaluation if this if you desire and return to the ER should you have any further concerns Discharge Orders/Prescriptions Prescriptions: New acetaminophen [Tylenol] 325 mg Tablet 650 mg PO Q6H PRN PRN (Reason: Pain 1-10 Or Fever>100.7) Qty: 0 0RF insulin glargine-yfgn 100 unit/mL (3 mL) Insulin Pen 15 unit subcut BIDAC Qty: 0 0RF sennosides-docusate sodium [Stool Softener-Stimulant Laxat] 8.6-50 mg Tablet 2 tab PO BID PRN PRN (Reason: Constipation) Qty: 0 0RF insulin lispro [Humalog KwikPen Insulin] 100 unit/mL Insulin Pen See Protocol subcut ACHS Qty: 0 0RF Protocol: 4. Sliding Scale Insulin High-Med Dosing Condition: 150-199 mg/dl = 2 units Condition: 200-259 mg/dl = 4 units Condition: 260-324 mg/dl = 6 units Condition: 325-374 mg/dl = 8 units Condition: 375-409 mg/dl = 10 units Condition: 410-449 mg/dl = 11 units Condition: Greater than 449 call physician Protocol Text: - Use for Total Daily Dose of Insulin 56-80 units - Patient who are insulin resistant or septic HIGH MEDIUM DOSING ALGORITHM Continued metformin 1,000 mg tablet 1,000 mg PO BID multivitamin Tablet 1 tab PO DAILY Label Comments: 1 tablet by mouth as directed Discontinued glimepiride 4 mg tablet 4 mg PO BID Levemir FlexTouch U-100 Insuln 100 unit/mL (3 mL) insulin pen 25 unit SUBCUT DAILY Referrals / Follow Up: Laverne Jackson PA [Primary Care Provider] - Disposition Disposition (needs filled in before D/C Order can be placed): Care Home Facility Charges/Coding Visit Charges Inpatient E&M: 24662 Disch Hosp >30min
--- NOTE | 2022-11-03 11:25 | CM.ED ---
TIAGO completed 7000. Copy placed in patient's chart. Zahira ENGLE
[2022-11-03 11:30] LABS: Bedside Glucose 289 mg/dL (74-106)
--- NOTE | 2022-11-05 12:41 | CASEMGMT ---
Social Work SW received a call from [employer] [facility] that they don't have a hospital exemption form. SW printed from [employer] and faxed to [employer] [facility]. AMAYA Barker
== END 2022-11-03 14:11 | disposition skilled nursing facility (03) | DRG 641 ==
LOC: ED 10-31 09:07 → MS3 10-31 11:57
PROVIDERS: Admitting Provider Internal Medicine; Emergency Provider Emergency Medicine; Visit Provider Internal Medicine
DX: R62.7 Adult failure to thrive (principal); D32.0 Benign neoplasm of cerebral meninges; E11.9 Type 2 diabetes mellitus without complications; Z79.4 Long term (current) use of insulin; I10 Essential (primary) hypertension; R53.1 Weakness; R53.81 Other malaise; R29.6 Repeated falls; Z68.27 Body mass index [BMI] 27.0-27.9, adult; Z79.84 Long term (current) use of oral hypoglycemic drugs; Z79.899 Other long term (current) drug therapy; Z87.891 Personal history of nicotine dependence
CPT/HCPCS: 36415; 70450; 70460; 70553; 71045; 72125; 73560; 80048; 80053; 82962; 83735; 84100; 84443; 85025; 87426; 93005; 97162; 97166; 99285; A9575; Q9967; A4216

== ENCOUNTER → 2023-02-11 | Outpatient (CLI) | payer MEDICARE, SELFPAY ==
--- NOTE | 2023-02-11 12:30 | NEURO ---
NCS and/or EMG Patient Report Ordering Doctor: PATY FALCON DATE OF SERVICE: 02/11/23 Indication: Unable to stand or walk due to his brain not being able to tell his legs what to do. He denies sensory loss, weakness, or pain in the lower extremities. Findings: Nerve conduction studies were performed in the right and left lower extremity. The right peroneal motor study recording the extensor digitorum brevis showed a normal amplitude, normal distal latency and normal conduction velocity. No conduction block or focal slowing was present across the fibular neck. The right tibial motor study recording the abductor hallucis brevis showed a normal amplitude, normal distal latency and normal conduction velocity. The right sural sensory response showed a normal amplitude and mildly slowed conduction velocity. Right superficial peroneal sensory response showed a normal amplitude and mildly slowed conduction velocity. The left peroneal motor study recording the extensor digitorum brevis showed a normal amplitude, normal distal latency and normal conduction velocity. No conduction block or focal slowing was present across the fibular neck. The left tibial motor study recording the abductor hallucis brevis showed a normal amplitude, normal distal latency and normal conduction velocity. Left sural sensory response showed a normal amplitude and mildly slowed conduction velocity. Left superficial peroneal sensory response showed a normal amplitude and mildly slowed conduction velocity. Needle EMG of the left lower extremity muscles was performed. The study was limited due to the patient's inability to perform certain volitional movements. No denervation was present in any muscle. All motor unit morphology, activation and recruitment patterns were normal in the sampled muscles. Impression: This is an essentially normal study. There is no electrophysiologic evidence of peripheral neuropathy of either the right or left lower extremity. In addition, there is no evidence of lumbosacral radiculopathy, plexopathy with limited needle EMG of the left lower extremity. The mildly slowed sensory conductions are likely artifactual in the setting of cool limb temperature. Otto Hawley D.O. Multi Select Codes Neurology Neurology Interp Codes: 32489-63 Musc tst done w/nerv tst smyth (interp) and 60561-64 Nr cndj test 7-8 studies (interp)
== END | disposition home or self-care (01) ==
PROVIDERS: Visit Provider Psychiatry & Neurology Neurology
DX: E11.42 Type 2 diabetes mellitus with diabetic polyneuropathy (principal)
CPT/HCPCS: 95885; 95910